=== PATIENT | male | born 1975 | race Caucasian/White ===

== ENCOUNTER 2025-06-17 11:25 | Emergency (ER) | payer OTHER ==
[~2025-06-17] VITALS: Ht 177.8 cm; Wt 126.5 kg
[2025-06-17] MEDS ORDERED: COZAAR50 MG PO ×2 (11:44→13:45)
[2025-06-17] MEDS ORDERED: ASPIRIN81 MG PO (11:45)
[2025-06-17 11:52] LABS: BASOPHILS 0.5 % (0.2-1.2); EOSINOPHILS 0.7 % (0.8-7.0); LYMPHOCYTES 15.2 % (21.8-53.1); MCH 30.9 PG (25.7-32.2); MCHC 34.1 g/dL (32.3-36.5); MCV 90.7 fL (79.0-92.2); MONOCYTES 9.1 % (5.3-12.2); NEUTROPHILS 74.3 % (34.0-67.9); RBC 5.27 M/uL (4.63-6.08)
[2025-06-17 12:11] LABS: ALT (SGPT) 31.0 U/L (14-59); AST (SGOT) 17.0 U/L (15-37); GLOMERULAR FILTRATION RATE,EST 109.0 mL/min (>60); PROTEIN, TOTAL 7.8 g/dL (6.4-8.2); UREA NITROGEN 12.0 mg/dL (7-18)
[2025-06-17 13:58] VITALS: BP 138/87
--- NOTE | 2025-06-19 07:38 | EKG ---
[facility] [address] [facility] [place], [place] [address] Signed Normal sinus rhythm Right superior axis deviation Abnormal ECG No previous ECGs available Confirmed by Wenceslao Schrader DO ([id number]) on 06/19/2025 7:38:30 AM Electronically Signed By: WENCESLAO SCHRADER DO 06/19/25 0738 PATIENT NAME: JUAN A RAMIRES Electrocardiogram DATE OF : 75 PHYSICIAN: WENCESLAO SCHRADER DO REPORT #: [id number] REPORT IS CONFIDENTIAL AND NOT TO BE RELEASED WITHOUT AUTHORIZATION
== END 2025-06-17 13:58 | disposition home or self-care (01) ==
LOC: ED 11:25
PROVIDERS: Emergency Medicine
DX: I10 Essential (primary) hypertension (principal); Z79.82 Long term (current) use of aspirin; Z79.899 Other long term (current) drug therapy
CPT/HCPCS: 36415; 71045; 80053; 83735; 84484; 85025; 93005; 93010; 99285-25